=== PATIENT | male | born 1995 | race African-American/Black ===

== ENCOUNTER 2019-03-13 18:06 | Emergency (ER) | payer SELFPAY ==
[~2019-03-13] VITALS: Ht 185.4 cm; Wt 90.7 kg
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
[2019-03-13 18:28] VITALS: BP 121/75
[2019-03-13] MEDS ORDERED: IBUPROFEN600 MG ORAL (18:49)
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
--- NOTE | 2019-03-13 18:56 | NUR ---
ER DISCHARGE NOTE: Patient is cleared to be discharged per ERMD, pt is aox4, on room air, with stable vital signs. pt was given dc and prescription instructions, pt was able to verbalize understanding, pt id band removed. pt is able to ambulate with steady gait. pt took all belongings.
== END 2019-03-13 18:56 | disposition home or self-care (01) ==
LOC: EMR 18:44
DX: S13.4XXA Sprain of ligaments of cervical spine, initial encounter (principal); T14.8XXA Other injury of unspecified body region, initial encounter; V43.52XA Car driver injured in collision with other type car in traffic accident, initial encounter; Y92.410 Unspecified street and highway as the place of occurrence of the external cause; M25.571 Pain in right ankle and joints of right foot
CPT/HCPCS: 99281